=== PATIENT | female | born 1980 | race African-American/Black ===

== ENCOUNTER 2018-07-13 12:06 | Emergency (ER) | payer MEDICAID ==
[~2018-07-13] VITALS: Ht 162.6 cm; Wt 65.0 kg
[~2018-07-13 12:06] MED LIST: ACET-1600
[2018-07-13 13:16] LABS: BASOPHILS # (AUTO) 0.03 x10^3/uL (0-0.1); BASOPHILS % (AUTO) 1 % (0-1); EOSINOPHILS # (AUTO) 0.06 x10^3/uL (0-0.4); EOSINOPHILS % (AUTO) 1 % (1-7); LYMPHOCYTES # (AUTO) 1.35 x10^3/uL (1-3.4); LYMPHOCYTES % (AUTO) 24 % (22-44); MD NO; MEAN CORPUSCULAR HEMOGLOBIN 27.7 pg (27.0-34.8); MEAN CORPUSCULAR HGB CONC 32.6 g/dL (32.4-35.8); MEAN CORPUSCULAR VOLUME 84.9 fL (80-100); MEAN PLATELET VOLUME 7.3 fL (7.4-10.4); MONOCYTES # (AUTO) 0.27 x10^3/uL (0.2-0.8); MONOCYTES % (AUTO) 5 % (2-9); NEUTROPHILS # (AUTO) 3.91 x10^3/uL (1.8-6.8); NEUTROPHILS % (AUTO) 70 % (42-75); PLATELET COUNT 343 x10^3/uL (130-400); RED BLOOD COUNT 4.73 x10^6/uL (3.82-5.3)
[2018-07-13 13:26] LABS: ANION GAP 7 mmol/L (5-15); CALCIUM 9.2 mg/dL (8.5-10.1); CHLORIDE 108 mmol/L (98-107); CREATININE 0.67 mg/dL (0.55-1.02)
[2018-07-13] MEDS ORDERED: METOCLOPRAMIDE 5 MG/ML, 2ML IVPush ONE (13:30)
[2018-07-13] MEDS ORDERED: SODIUM CHLORIDE FLUSH 10ML SYR IVF ONE (13:30)
[2018-07-13] MEDS ORDERED: DIPHENHYDRAMINE 50 MG/ML, 1ML IVPush ONE (13:30)
[2018-07-13] MEDS ORDERED: DIPHENHYDRAMINE 50 MG/ML, 1ML ONE (13:43)
[2018-07-13] MEDS ORDERED: METOCLOPRAMIDE 5 MG/ML, 2ML ONE (13:43)
--- NOTE | 2018-07-13 13:50 | NUR ---
IV PLACED, MEDS GIVEN PER ERP ORDER FOR NECK AND GALVAN PAIN RATED 5/10. BP CUFF, PULSE OX IN PLACE. CALL LIGHT WITHIN REACH, MOTHER AT BS.
--- NOTE | 2018-07-13 14:16 | NUR ---
LAB RESULTS BACK, PT FOR RECHECK.
[2018-07-13 15:19] VITALS: BP 111/72
== END 2018-07-13 15:35 | disposition home or self-care (01) ==
LOC: ED 12:33
DX: G43.C1 Periodic headache syndromes in child or adult, intractable (principal)
CPT/HCPCS: 36415; 80048; 82040; 85025; 96374; 96375; 99283; J1200; J2765